=== PATIENT | male | born 1975 | race Two or more races ===

== ENCOUNTER 2022-05-11 05:44 | Day surgery (SDC) | payer OTHER ==
[~2022-05-11 05:44] MED LIST: JANUVIA50 MG; METFORMIN HCL500 MG PO; POLY119PG PO; SURFAK240 M1 PO; TRILIPIX PO; ULTRACET PO; [UNRECOGNIZED DRUG - OTHER] PO
[2022-05-11] MEDS ORDERED: NEURONTIN300 MG PO (10:19)
[2022-05-11] MEDS ORDERED: PERCOCET 5-3251 EACH PO (10:19)
[2022-05-11] MEDS ORDERED: COLACE100 MG PO (10:19)
== END 2022-05-11 14:35 | disposition home or self-care (01) ==
LOC: CIR.AMB 05:44
PROVIDERS: ATTEND Surgery
DX: K60.3 Anal fistula (principal); Z20.822 Contact with and (suspected) exposure to COVID-19; Z88.8 Allergy status to other drugs, medicaments and biological substances; E78.5 Hyperlipidemia, unspecified; Z86.16 Personal history of COVID-19; K21.9 Gastro-esophageal reflux disease without esophagitis

== ENCOUNTER 2025-06-23 07:42 | Outpatient (CLI) | payer OTHER ==
[~2025-06-23 07:42] MED LIST changes: +COLACE100 MG PO; +NEURONTIN300 MG PO; +PERCOCET 5-3251 EACH PO
== END 2025-06-23 07:49 | disposition home or self-care (01) ==
LOC: EDBD 07:42 → RAD 07:42
PROVIDERS: ATTEND Urology
DX: N20.0 Calculus of kidney (principal)

== ENCOUNTER 2025-07-06 07:14 | Outpatient (CLI) | payer OTHER | END 2025-07-06 07:24 | disposition home or self-care (01) | LOC: TOM 07:14 | PROVIDERS: ATTEND Urology | DX: N20.1 Calculus of ureter (principal) ==